=== PATIENT | male | born 1980 | race Caucasian/White ===

== ENCOUNTER 2016-11-04 16:36 | Emergency (ER) | payer MEDICAID, OTHER ==
[~2016-11-04] VITALS: Ht 190.5 cm; Wt 107.0 kg
[~2016-11-04 16:36] MED LIST: DIVA500T52 PO; GABA-531 PO; NICO21T TD; PALI6 PO
[2016-11-04] MEDS ORDERED: RISP.5 PO (16:40)
[2016-11-04] MEDS ORDERED: SERT100T12 PO (16:40)
[2016-11-04] MEDS ORDERED: RisperiDONE 1 MG TABLET PO ONE (17:15)
[2016-11-04] MEDS ORDERED: IBUPROFEN 800 MG TABLET PO ONE (17:15)
[2016-11-04] MEDS ORDERED: SERTRALINE HCL 100 MG TABLET PO ONE (17:15)
[2016-11-04 18:10] VITALS: BP 128/85
== END 2016-11-04 18:15 | disposition home or self-care (01) ==
LOC: EMS 16:38
DX: F20.0 Paranoid schizophrenia (principal); M25.561 Pain in right knee; F31.9 Bipolar disorder, unspecified; F15.10 Other stimulant abuse, uncomplicated; F17.210 Nicotine dependence, cigarettes, uncomplicated; Z91.013 Allergy to seafood; Z76.0 Encounter for issue of repeat prescription
CPT/HCPCS: 99284; 99406